=== PATIENT | male | born 2000 | race African-American/Black ===

== ENCOUNTER 2024-10-05 18:00 | Emergency (ER) | payer OTHER, SELFPAY ==
[2024-10-05 18:06] VITALS: BP 117/76
--- NOTE | 2024-10-05 20:03 | ED.GENMED ---
History of Present Illness
<Stefanie Watt PA-C - Last Filed: 10/05/24 22:47>
General
Chief Complaint: Skin Surface Trauma
Source: patient
Exam Limitations: none
Time Seen by Provider: 10/05/24 20:01
Nursing documentation reviewed up to this point in time: agreed with
History of Present Illness
History of Present Illness:
24-year-old male with no past medical history presents emergency department today with concerns of a laceration noted to his chin. Patient reports that he is a student at [employer] and was playing basketball today when he tripped and fell straight
onto his chin. Patient did not hit his head. Patient not lose consciousness. Patient denies any neck pain. Patient got up and continue playing. He later started to bleed and he was evaluated by a radio sportscaster who noted a laceration to noted
to the chin and he is recommended to go to the emergency department for stitches. Patient states that no pain today is a bit but the bleeding is largely controlled. Patient states that he is unsure of his up-to-date on his tetanus.
Review of Systems
<Stefanie Watt PA-C - Last Filed: 10/05/24 22:47>
Review of Systems
All Other Systems: ROS reviewed and negative except as documented in HPI and ROS
Phy Exam
<Stefanie Watt PA-C - Last Filed: 10/05/24 22:47>
Physical Exam
Physical Exam:
General: Patient is well appearing and in no acute distress; non-toxic
Skin: 2 cm actively bleeding laceration noted under the chin
Head: Normocephalic, atraumatic. TMJ joints intact bilaterally.
Eyes: Sclera non-icteric. EOMs intact. PERRLA.
Neck: No tenderness palpation of the cervical spine
Mouth: No intraoral lesions or abrasions, dentition intact
Cardiac: Regular rate
Pulm: Normal respiratory effort
Neuro: CN II-XII intact, no focal neurologic deficits.
Psychiatric: Appropriate mood and affect.
Course
<Stefanie Watt PA-C - Last Filed: 10/05/24 22:47>
Vital Signs
Initial and Last Documented VS:
Initial Vital Signs
Temp Pulse Resp BP Pulse Ox
97.5 F 64 18 117/76 100
10/05/24 18:06 10/05/24 18:06 10/05/24 18:06 10/05/24 18:06 10/05/24 18:06
Last Documented Vital Signs
Temp Pulse Resp BP Pulse Ox
97.5 F 64 16 117/76 100
10/05/24 18:06 10/05/24 18:06 10/05/24 20:00 10/05/24 18:06 10/05/24 18:06
<Maurice Ruiz DO - Last Filed: 10/05/24 20:24>
Vital Signs
Initial and Last Documented VS:
Initial Vital Signs
Temp Pulse Resp BP Pulse Ox
97.5 F 64 18 117/76 100
10/05/24 18:06 10/05/24 18:06 10/05/24 18:06 10/05/24 18:06 10/05/24 18:06
Last Documented Vital Signs
Temp Pulse Resp BP Pulse Ox
97.5 F 64 16 117/76 100
10/05/24 18:06 10/05/24 18:06 10/05/24 20:00 10/05/24 18:06 10/05/24 18:06
<Stefanie Watt PA-C - Last Filed: 10/05/24 22:47>
MDM/Problems Addressed
Differential Diagnosis Includes:
Differentials include laceration, abrasion, neurovascular injury
MDM/Problems Addressed:
24-year-old male presents emergency department today with concerns of a laceration noted to his chin that occurred while playing basketball. He fell forward and tripped. He not lose consciousness. He has no chronic medical problems. His wound
was repaired with sutures. Patient tolerated procedure well. Did discuss local wound care and when to get the stitches removed. Did discuss tetanus vaccination, patient refusing vaccination at this time, we did discuss the pros and cons. Patient
stable for discharge.
Chronic conditions affecting care:
N/A
Acute Exacerbation and/or Progression of Chronic Illness:
N/A
<Stefanie Watt PA-C - Last Filed: 10/05/24 22:47>
*Pulse Oximetry
Patient hypoxic: no
*Critical Care Note
Total Time (30-74mins, 75-104mins- exclusive of procedures): Not Applicable
Data Reviewed
Review of Other/Old Records Reveals: Records (No previous ER physician documentation to review) and Discharge Summary (No discharge summaries to review)
Source: patient and records
Prescriptions/Medications Considered But Not Given:
N/A
Further Testing Considered But Not Given:
N/A
ED Attending Note
<Stefanie Watt PA-C - Last Filed: 10/05/24 22:47>
-
Portions of this chart may have been created with voice recognition software.� Occasional wrong word or��sound alike� substitutions may have occurred due to the inherent limitations of voice recognition software.
<Maurice Ruiz DO - Last Filed: 10/05/24 20:24>
ED Attending Note
Patient seen and examined by attending physician: Yes
I performed the substantive portion of visit, reviewed & personally made and approve the management plan that is documented in note by myself or GEMA.: Yes
Discharge Plan
Departure
Patient Disposition: Home (Routine Discharge)
Date of Disposition: 10/05/24
Time of Disposition: 20:51
Patient with high blood pressure during this ER visit?: No
Condition: Good
Discharge Problem:
Chin laceration
Instructions: Laceration Repair With Stitches (DC), BLOOD PRESSURE
Referrals:
NONE,* [Family Provider] -
Activity Restrictions/Additional Instructions:
Please have your stitches removed in 5 days.
Please keep the wound dry for 24 hours, after 24 hours, you can let warm soapy water run over the wound. Do not scrub your wound. You can expect serosanguineous drainage from the wound. Should you experience pus drainage from the wound, fevers or
chills, surrounding redness to the wound, please return to emergency department.
Please follow-up with your primary care provider.
Interventions
Interventions:
*Risk Screen - Suicide Last Done: 10/05/24 18:06
*General Assessment Last Done: 10/05/24 18:06
*Neglect/Abuse Screening Last Done: 10/05/24 18:06
ED- Fall Risk Assessment Last Done: 10/05/24 20:15
*ED COVID-19 Vaccine History Last Done: 10/05/24 18:06
*Nursing Disposition Last Done: 10/05/24 20:54
ED-Skin Assessment Last Done: 10/05/24 20:15
Discharge Date and Time
Discharge Date/Time: 10/05/24 20:54
Print Language: [id number]
== END 2024-10-05 20:54 | disposition home or self-care (01) ==
LOC: EMR 18:00
PROVIDERS: EMERGENCY PHYSICIAN Emergency Medicine
DX: S01.81XA Laceration without foreign body of other part of head, initial encounter (principal); W01.0XXA Fall on same level from slipping, tripping and stumbling without subsequent striking against object, initial encounter; Y93.67 Activity, basketball
CPT/HCPCS: 12011; 99282